=== PATIENT | female | born 1970 | race Caucasian/White ===

== ENCOUNTER → 2019-07-29 10:48 | Outpatient (CLI) | payer OTHER, SELFPAY ==
--- NOTE | ~2019-07-29 | XR_ITS ---
XR chest 2V 07/29/2019 10:56 Indication: Generalized lymph nodes. Procedure: 2 view chest Comparison: 01/08/2019 Findings: Heart size normal. Left basilar atelectasis. No focal pneumonia, edema, pleural effusion or pneumothorax. No acute osseous abnormality. Impression: 1: Left basilar atelectasis. Reviewed, dictated and finalized at location B. R ENTRY Impression: 1: Left basilar atelectasis.
== END ==
PROVIDERS: PCP Family Medicine; Visit Provider Nurse Practitioner Family
DX: R59.1 Generalized enlarged lymph nodes (principal); R91.8 Other nonspecific abnormal finding of lung field
CPT/HCPCS: 71046

== ENCOUNTER → 2019-08-27 13:44 | Outpatient (CLI) | payer OTHER, SELFPAY ==
--- NOTE | ~2019-08-27 | CT_ITS ---
EXAMINATION: CT chest abdomen pelvis w con DATE: 08/27/2019 14:26 INDICATION: Generalized enlarged lymph nodes. Fatigue. History of right fallopian tube removal. TECHNIQUE: Computed tomography (CT) of the chest, abdomen, and pelvis was performed with 100 cc Omnip aque 350 intravenous contrast. Automated exposure control and iterative reconstruction technique were employed. Exam dose: 1262.32 mGy-cm total exam DLP. COMPARISON: CT abdomen pelvis 07/29/2019 2 view chest x-ray FINDINGS: CHEST CT: No hilar or mediastinal mass lesion or lymphadenopathy. No suspicious axillary lymph nodes. No thoracic aortic aneurysm or dissection. Normal heart size. No pericardial or pleural effusion. There is mild atelectasis and/or scarring at the lung bases. ABDOMEN/PELVIS CT: There is diffuse hepatic steatosis. No hepatic, splenic, pancreatic, adrenal or renal space occupyin g mass lesion is detected. No bile duct or pancreatic duct dilatation. No urinary tract calculus or hydroureteronephrosis. Normal caliber of the abdominal aorta with minimal atherosclerotic calcification. No intraperitoneal or retroperitoneal or pelvic mass lesion or adenopathy or ascites. Calcified uterine fibroid. Uterus, adnexal areas and urinary bladder otherwise appear unremarkable. No bowel obstruction or intraperitoneal free air. Included skeletal structures are unremarkable. IMPRESSION: Mild atelectasis or scarring at the lung bases Hepatic steatosis Reviewed, dictated and finalized at Location A. Reviewed, dictated and finalized at location B.
[2019-08-27 14:16] LABS: Estimated Glomerular Filt Rate > 60
== END ==
PROVIDERS: PCP Family Medicine; Visit Provider Internal Medicine Infectious Disease
DX: R59.1 Generalized enlarged lymph nodes (principal); K76.0 Fatty (change of) liver, not elsewhere classified; R91.8 Other nonspecific abnormal finding of lung field
CPT/HCPCS: 36415; 71260; 74177; Q9967

== ENCOUNTER 2019-10-28 10:01 | Outpatient (CLI) | payer OTHER, SELFPAY ==
--- NOTE | ~2019-10-28 | CT_ITS ---
EXAMINATION: CT soft tissue neck wo con DATE: 10/28/2019 10:26 INDICATION: Cervical lymphadenopathy. TECHNIQUE: Computed tomography (CT) of the neck was performed without intravenous contrast. Automated exposure control and iterative reconstruction technique were employed. The dose-length product was 5 06.41 mGy-cm. COMPARISON: Chest CT 08/27/2019 FINDINGS: There is mild bilateral submandibular lymphadenopathy. For example, a left submandibular no de measures 10 x 15 mm. There is mild mucosal thickening in the maxillary sinuses. The mastoid air ce lls are normal. There is mild cervical spondylosis. IMPRESSION: 1. Mild bilateral submandibular lymphadenopathy, likely reactive. Reviewed, dictated and finalized at location A.
== END 2019-10-28 10:02 | disposition home or self-care (01) ==
LOC: ANHIMG 10:06
PROVIDERS: PCP Family Medicine; Visit Provider Internal Medicine Infectious Disease
DX: R59.1 Generalized enlarged lymph nodes (principal)
CPT/HCPCS: 70490

== ENCOUNTER → 2020-02-12 14:36 | Outpatient (CLI) | payer OTHER, SELFPAY ==
--- NOTE | ~2020-02-12 | XR_ITS ---
EXAMINATION: XR mandible min 4V DATE: 02/12/2020 15:10 INDICATION: Jaw pain. TECHNIQUE: 4 views of the mandible were obtained. COMPARISON: Neck CT 10/28/2019 FINDINGS: Bone alignment is normal. No fracture. IMPRESSION: 1. No fracture. Reviewed, dictated and finalized at location A. IMPRESSION: 1. No fracture.
== END ==
PROVIDERS: PCP Nurse Practitioner Family; Visit Provider Nurse Practitioner Family
DX: R22.0 Localized swelling, mass and lump, head (principal); R68.84 Jaw pain
CPT/HCPCS: 70110

== ENCOUNTER → 2020-02-23 10:30 | Outpatient (CLI) | payer OTHER, SELFPAY ==
--- NOTE | ~2020-02-23 | CT_ITS ---
EXAMINATION: CT soft tissue neck wo con EXAM DATE: 02/23/2020 10:43 INDICATION: Cervical lymphadenopathy. Recent biopsy. TECHNIQUE: Spiral CT of the neck was performed without contrast. Axial, coronal and sagittal images were reviewed. The dose-length product (DLP) for this examination was 357.08 mGy-cm. The exposure was tailored according to patient size (auto mA exposure control), and iterative reconstruction (ASIR ) was used as additional dose reduction technique. Comparison is made to prior examination from 020. FINDINGS: The thyroid gland is unremarkable. The submandibular and parotid glands are symmetric. There are bilateral submandibular lymph nodes which are upper limits of normal in size, one of the la rger on the left side measuring 1.4 x 0.8 cm. There are slightly decreased in size overall compared t o previous examination and are likely reactive. The superior mediastinum is unremarkable. The airw ay is unremarkable. Parapharyngeal and pre-glottic fat planes are preserved. Limited evaluation o f cervical vessels on this noncontrast study. The orbits are unremarkable. Visualized sinuses and mastoid air cells are well aerated. Lung apices are clear. There is cervical spondylosis. IMPRESSION: Submandibular lymph nodes with mild decrease in size, likely reactive. Reviewed, dictated and finalized at location A. IMPRESSION: Submandibular lymph nodes with mild decrease in size, likely reacti ve.
== END ==
PROVIDERS: PCP Family Medicine; Visit Provider Internal Medicine Infectious Disease
DX: R59.0 Localized enlarged lymph nodes (principal)
CPT/HCPCS: 70490

== ENCOUNTER → 2020-03-30 08:16 | Outpatient (CLI) | payer OTHER, SELFPAY ==
--- NOTE | ~2020-03-30 | MMUS_ITS ---
EXAMINATION: MM diagnostic patt BI w georgina, US breast BI complete HISTORY: Comparison to multiple prior studies sequentially, with oldest reviewed study dated 07/14/19 16. TECHNIQUE: Additional 3-D tomosynthesis images of the breasts were performed and synthetic 2-D images were generated. CAD analysis was submitted and interpreted. High resolution bilateral complete breas t ultrasound was performed. COMPARISON: Comparison to multiple prior studies sequentially, with oldest reviewed study dated 07/14. BREAST PARENCHYMAL COMPOSITION: Breast composed of scattered areas of fibroglandular density. FINDINGS: MAMMOGRAPHIC FINDINGS: There are no suspicious masses, calcifications or architectural distortion to suggest malignancy. ULTRASOUND: Bilateral complete ultrasound: Normal heterogeneous echotexture without focal solid or cystic mass. IMPRESSION: 1. No evidence for malignancy in either breast. 2. Routine yearly screening mammogram and regular clinical breast examination are recommended. BI-RADS Category 1: Negative Reviewed, dictated and finalized at location A. 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 No evidence for malignancy in either breast. 2. Routine yearly screening mammogram and regular clinical breast examination a re recommended. BI-RADS Category 1: Negative
== END ==
PROVIDERS: PCP Family Medicine; Visit Provider Obstetrics & Gynecology Gynecology
DX: R92.8 Other abnormal and inconclusive findings on diagnostic imaging of breast (principal)
CPT/HCPCS: 76641; 77062; 77066; G0279

== ENCOUNTER 2020-07-16 17:03 | Emergency (ER) | payer OTHER, SELFPAY ==
--- NOTE | 2020-07-16 17:12 | ED.CHESTPAIN ---
HPI - Chest Pain General Chief Complaint: Chest Pain Stated Complaint: chest tightness/left arm pain Time Seen by Provider: 07/16/20 17:16 Source: patient and RN notes reviewed Mode of arrival: ambulatory Limitations: no limitations History of Present Illness HPI narrative: 50-year-old female with history of hypothyroidism, hypertension, hyperlipidemia presents with concern for chest tightness, left arm pain, shortness of breath, fatigue. Reports fatigue and general malaise have been present for 2 to 3 days, chest tightness and left arm pain started today. She denies nausea, vomiting, diaphoresis, headache, fever. She denies injury or trauma. She denies increased chest pain with exertion. She denies history of cardiac events. MD complaint: chest pain Related Data Home Medications Medication Instructions Recorded Confirmed Prilosec 20 mg DAILY 04/14/19 03/14/20 Allergies Allergy/AdvReac Type Severity Reaction Status Date / Time No Known Allergies Verified 03/02/20 15:33 Review of Systems Review of Systems: Narrative: CONSTITUTIONAL: Denies malaise, chills, sweats, or fever. EYES: Denies visual changes, redness, or discharge. ENT: Reports chronic rhinorrhea, congestion. Denies sinus pain, otalgia or sore throat. CARDIOVASCULAR: Reports chest heaviness. Denies palpitations, or edema. RESPIRATORY: Denies cough. Reports dyspnea. GASTROINTESTINAL: Denies abdominal pain, nausea, vomiting, diarrhea, bloody, or mucous stools. GENITOURINARY: Denies dysuria or hematuria. SKIN: Denies rash or itching. MUSCULOSKELETAL: Denies back pain, joint pain, or myalgia. Reports left arm pain NEUROLOGIC: Denies numbness, weakness, or headache. All systems reviewed & are unremarkable except as noted in HPI and below PMFSH Family History Family History Father Hypertension Family history of diabetes mellitus in first degree relative Mother Hypertension Family history of diabetes mellitus in first degree relative Sibling Hypertension Grandparent Family history of malignant neoplasm of breast, Onset Age: 5 Social History Social History Smoking status: Never smoker Alcohol intake: current Gender identity (if verbalized by the patient): Female Comments At time of signature, agree with nursing past medical, surgical, social and family history. There is no relevant family history pertinent to the presenting complaint Exam Narrative: Exam Narrative: GENERAL: Well-appearing, well-nourished, and in no acute distress. HEAD: Normocephalic, atraumatic. EYES: PERRLA, conjunctivae clear, and EOMI. No nystagmus. ENT: Nares clear, turbinates pink, clear rhinorrhea. NECK: Supple. No lymphadenopathy. No jugular venous distension, thyromegaly, or carotid bruits. Carotids were easily palpable bilaterally. CHEST: No respiratory distress. Clear to auscultation. No bony deformities, no asymmetry. Speaks in full sentences. HEART: Regular rate and rhythm. No murmur heard. Normal peripheral pulses. ABDOMEN: Soft, nontender, nondistended, normal active bowel sounds, no palpable masses. SKIN: Warm, dry, no rash. NEURO: Alert and oriented x3. No focal deficits. PSYCH: Normal mood and affect Course Course Emergency Course: Discussed with patient limited diagnostic capability at the [facility] for diagnosing chest pain. Discussed normal EKG. Discussed transfer to emergency room for further evaluation of her chest pain. Patient discussed this with her and chooses to be discharged home, patient reports she understands risks. Patient is aware of, understands and agrees to treatment plan. Anticipatory guidance given. Patient agrees to follow-up as directed and is aware of reasons to seek care at the emergency department. Portions of this record may have been created with voice recognition software Vital Signs Vital signs: Vital Sign
[2020-07-16 17:17] VITALS: BP 167/86; PULSE 86; RESP 20; TEMP 36.6; O2SAT 100
--- NOTE | 2020-07-16 17:19 | ECG_ITS ---
Measurements Intervals [place] Rate: 78 P: 38 RI: 124 QRS: 36 QRSD: 94 T: 50 QT: 377 QTc: 432 Interpretive Statements SINUS RHYTHM INCOMPLETE RIGHT BUNDLE BRANCH BLOCK BASELINE ARTIFACT- I, II, III, AVR, AVL, AVF BORDERLINE ECG Electronically Signed On 07-17-2020 7:50:23 INTEGRATION ENGINEER by Kushal Corona D.O.
== END 2020-07-16 17:40 | disposition home or self-care (01) ==
PROVIDERS: Emergency Provider Nurse Practitioner; PCP Family Medicine
DX: R07.89 Other chest pain (principal); Z20.822 Contact with and (suspected) exposure to COVID-19; I10 Essential (primary) hypertension; K21.9 Gastro-esophageal reflux disease without esophagitis; E03.9 Hypothyroidism, unspecified; F41.9 Anxiety disorder, unspecified; F32.9 Major depressive disorder, single episode, unspecified
CPT/HCPCS: 87426; 93005; 99213; C9803; G0463

== ENCOUNTER 2020-08-13 08:37 | Outpatient (CLI) | payer OTHER, SELFPAY ==
--- NOTE | 2020-08-13 09:15 | ECHO_ITS ---
Patient Info Name: Ruma Ballesteros Age: 50 years : 1970 Gender: Female Ht: 62 in Wt: 175 lbs BSA: 1.90 m2 HR: 74 bpm BP: 131 / 89 mmHg Technical Quality: Good Exam Date: 08/13/2020 9:24 AM Exam Location: [facility] Patient Status: Outpatient Admit Date: 08/13/2020 Staff Ordering Physician: Alicia Aleman NP Billet Sawyer: Sejal Burkett RCS Attending Provider: Alicia Aleman NP Referring Physician: Love LAN; Exam Type: CA echo doppler color flow Study Info Indications - chest pain laughlin Complete two-dimensional, color flow and Doppler transthoracic echocardiogram is performed. Summary 1. Complete two-dimensional, color flow and Doppler transthoracic echocardiogram is performed. 2. Left ventricular chamber dimension is normal. 3. Left ventricular systolic function is normal, estimated at 55-60%. 4. The left ventricular diastolic function is grade I diastolic dysfunction. 5. E/e' 10 is mildly elevated. 6. Global longitudinal strain is mildly abnormal at -16.3%. 7. There is trace tricuspid valve regurgitation. 8. No pulmonary hypertension, estimated pulmonary arterial systolic pressure is 26 mmHg. Left Ventricle E/e' 10 is mildly elevated. Global longitudinal strain is mildly abnormal at -16.3%. Left ventricular chamber dimension is normal. Left ventricular systolic function is normal, estimated at 55-60%. The left ventricular diastolic function is grade I diastolic dysfunction. Right Ventricle Right ventricular chamber dimension is normal. Right ventricular systolic function is normal. Left Atria Left atrial chamber dimension is normal. Right Atria Right atrial chamber dimension is normal. Aortic Valve The aortic valve is trileaflet. There is no aortic valve stenosis. There is no aortic valve regurgitation. Pulmonic Valve There is no pulmonic regurgitation. Mitral Valve There is no mitral valve stenosis. There is no mitral valve regurgitation. Tricuspid Valve There is trace tricuspid valve regurgitation. No pulmonary hypertension, estimated pulmonary arterial systolic pressure is 26 mmHg. Pericardium/Pleural There is no pericardial effusion. Inferior Vena Cava Normal inferior vena cava with >50% collapse upon inspiration consistent with normal right atrial pressure, 5 mmHg. Aorta The aortic root size at the sinus of Valsalva is normal. Left Ventricular Outflow Tract Name Value Normal LVOT 2D LVOT Diameter 2.0 cm LVOT Doppler LVOT Peak Gradient 4 mmHg LVOT Mean Gradient 2 mmHg LVOT VTI 22 cm LVOT VTI/AV VTI Ratio 0.8 LVOT Stroke Volume 70 ml LVOT CO 13.9 l/min LVOT CI 7.3 l/min/m2 Pulmonic Valve Name Value Normal PV Doppler --
--- NOTE | 2020-08-13 09:16 | EST_ITS ---
Patient Info Name: Ruma Ballesteros Age: 50 years : 1970 Gender: Female Ht: 62 in Wt: 175 lbs BSA: 1.90 m2 Exam Date: 08/13/2020 10:13 AM Exam Location: [facility] Stress Patient Status: Outpatient Admit Date: 08/13/2020 Staff Ordering Physician: Alicia Aleman NP Attending Provider: Alicia Aleman NP Exercise Technologist: Shayna Obrien RDCS Exercise Physician: Kushal Corona DO Exam Type: CA stress test treadmill Study Info Indications R07.89 - Other chest pain A treadmill exercise stress test was performed. Summary 1. 1. Negative Yimi exercise stress test for ischemic ST changes by ECG criteria. She achieved 82% MPHR for age group, probably limited by taking Metoprolol last evening. 2. 2. Good functional capacity, achieving 9 METs of workload. 3. 3. Appropriate HR recovery at 1 minute post exercise. 4. 4. Hypertensive response to exercise. 5. 5. No imaging with stress testing. 6. 6. Patient informed of the above results. Protocol: Yimi Stress ECG Details Stage: REST Duration (min): 6 min : 23 sec Speed (mph): 0.0 Grade (%): 0 HR (bpm): 72 SBP (mmHg): 109 DBP (mmHg): 78 METS: --- Stage: REST Duration (min): 6 min : 45 sec Speed (mph): 0.0 Grade (%): 0 HR (bpm): 75 SBP (mmHg): 109 DBP (mmHg): 78 METS: --- Stage: REST Duration (min): 15 min : 1 sec Speed (mph): 0.0 Grade (%): 0 HR (bpm): 81 SBP (mmHg): 109 DBP (mmHg): 78 METS: --- Stage: STAGE 1 Duration (min): 1 min : 0 sec Speed (mph): 1.7 Grade (%): 10 HR (bpm): 97 SBP (mmHg): 109 DBP (mmHg): 78 METS: --- Stage: STAGE 1 Duration (min): 2 min : 0 sec Speed (mph): 1.7 Grade (%): 10 HR (bpm): 111 SBP (mmHg): 109 DBP (mmHg): 78 METS: --- Stage: STAGE 1 Duration (min): 3 min : 0 sec Speed (mph): 1.7 Grade (%): 10 HR (bpm): 112 SBP (mmHg): 157 DBP (mmHg): 78 METS: --- Stage: STAGE 2 Duration (min): 1 min : 0 sec Speed (mph): 2.5 Grade (%): 12 HR (bpm): 121 SBP (mmHg): 157 DBP (mmHg): 78 METS: --- Stage: STAGE 2 Duration (min): 2 min : 0 sec Speed (mph): 2.5 Grade (%): 12 HR (bpm): 130 SBP (mmHg): 214 DBP (mmHg): 117 METS: --- Stage: STAGE 2 Duration (min): 3 min : 0 sec Speed (mph): 2.5 Grade (%): 12 HR (bpm): 133 SBP (mmHg): 198 DBP (mmHg): 109 METS: --- Stage: STAGE 3 Duration (min): 1 min : 0 sec Speed (mph): 3.4 Grade (%): 14 HR (bpm): 139 SBP (mmHg): 184 DBP (mmHg): 92 METS: --- Stage: STAGE 3 Duration (min): 1 min : 31 sec Speed (mph): 3.4 Grade (%): 14 HR (bpm): 139 SBP (mmHg): 184 DBP (mmHg): 92 METS: --- Stage: RECOVERY Duration (min): 0 min : 28 sec Speed (mph): 0.0 Grade (%): 0 HR (bpm): 133 SBP (mmHg): 184 DBP (mmHg): 92 METS: ---
== END 2020-08-13 08:38 | disposition home or self-care (01) ==
PROVIDERS: PCP Family Medicine; Visit Provider Nurse Practitioner Family
DX: E78.5 Hyperlipidemia, unspecified (principal); I10 Essential (primary) hypertension; R06.00 Dyspnea, unspecified; R07.89 Other chest pain
CPT/HCPCS: 93017; 93306

== ENCOUNTER 2020-10-11 08:05 | Outpatient (CLI) | payer OTHER, SELFPAY ==
--- NOTE | 2020-10-16 12:40 | WPDPFTINT ---
PFT Procedure Performed PFT Procedure Performed Spirometry with Pre/Post Bronchodilator Plethysmography (Lung Vol) Diffusing Cap (DLCO) Flow Vol Loop PFT Interpretation This PFT met all criteria for ATS standards and reproducibility FEV/FVC post bronchodilator 71% FEV1 62% FVC 71% there was significant improvement in post bronchodilator FEV1 by 18% and 240 mL. TLC 81% RV 96% RV/TLC 42% DLCO 74% when adjusted for alveolar volume but not adjusted for hemoglobin Flow volume loops showed some expiratory coving. Impression: Moderate airflow obstruction with good response to bronchodilators. This pattern may be suggestive of asthma or COPD or combination thereof but other clinical entities and lung diseases cannot be ruled out. Clinical correlation is advised.
== END 2020-10-11 08:06 | disposition home or self-care (01) ==
LOC: ANHPFT 08:11
PROVIDERS: PCP Family Medicine; Visit Provider Nurse Practitioner Family
DX: J98.11 Atelectasis (principal); R06.00 Dyspnea, unspecified; R07.89 Other chest pain
CPT/HCPCS: 94060; 94726; 94729

== ENCOUNTER → 2021-02-07 15:30 | Outpatient (CLI) | payer OTHER, SELFPAY ==
--- NOTE | ~2021-02-07 | MR_ITS ---
EXAMINATION: MR knee LT wo con DATE: 02/07/2021 16:08 INDICATION: Left knee pain TECHNIQUE: Magnetic resonance imaging (MRI) of the left knee was performed without intravenous contra st. Sequences included coronal PD-weighted FSE, coronal PD-weighted FS FSE, sagittal T2-weighted FSE , sagittal PD-weighted FS FSE and axial PD weighted fat saturated FSE. COMPARISON: None. FINDINGS: Medial compartment: Medial meniscus is normal. Shallow chondral ulceration and deep fissuring with mild underlying cortic al irregularity and small region of subarticular edema at the posterior weightbearing medial femoral condyle. Cartilage along the remainder of the weightbearing medial femoral condyle and the medial tib ial plateau are relatively preserved. Lateral compartment: Lateral meniscus is normal. Articular cartilage is normal. Patellofemoral compartment: Small focus of chondral irregularity along the inferolateral aspect of the medial trochlea without de generative subchondral changes. Remainder of the patellofemoral cartilage is normal. Ligaments and tendons: The anterior and posterior cruciate ligaments are normal. Mild thickening of the proximal medial wayne ateral ligament without surrounding edema consistent with mild scarring related to chronic sprain. Th e fibular collateral ligament complex is normal. The extensor mechanism is normal. The visualized me dial and lateral hamstring tendons as well as the iliotibial band are normal. Fluid: Physiologic amount of fluid in the joint space. No loose osteochondral bodies identified. Osseous/other: Normal marrow signal. No fracture or pathologic marrow replacing process. IMPRESSION: 1. Mild medial and patellofemoral compartment osteoarthritis with high-grade chondromalacia along the posterior weightbearing medial femoral condyle and small focus of moderate grade chondromalacia at t he inferior aspect of the medial trochlea. 2. Mild scarring consistent with chronic sprain of the proximal medial collateral ligament. Reviewed, dictated and finalized at location A. IMPRESSION: 1. Mild medial and patellofemoral compartment osteoarthritis with high-grade ch ondromalacia along the posterior weightbearing medial femoral condyle and small focus of moderate grade chondromalacia at the inferior aspect of the medial tr ochlea. 2. Mild scarring consistent with chronic sprain of the proximal medial collater al ligament.
== END ==
PROVIDERS: PCP Family Medicine; Visit Provider Orthopaedic Surgery
DX: M17.12 Unilateral primary osteoarthritis, left knee (principal); M94.29 Chondromalacia, multiple sites
CPT/HCPCS: 73721

== ENCOUNTER → 2021-03-29 12:22 | Outpatient (CLI) | payer OTHER, SELFPAY ==
--- NOTE | ~2021-03-29 | MM_ITS ---
EXAMINATION: MM screening patt BI w georgina HISTORY: Screening TECHNIQUE: Craniocaudal and mediolateral oblique 3-D tomosynthesis images were obtained and synthetic 2-D images were generated. CAD analysis was submitted and interpreted. COMPARISON: Comparison to multiple prior studies sequentially, with oldest reviewed study dated 07/17. BREAST PARENCHYMAL COMPOSITION: The breasts are heterogenously dense, which may obscure small masses. FINDINGS: There is no evidence of suspicious mass, calcification, or architectural distortion to sugg est malignancy in either breast. There has been no suspicious interval change. IMPRESSION: 1. No mammographic evidence of malignancy. 2. Recommend routine screening mammography in one year. BI-RADS Category 1: Negative Reviewed, dictated and finalized at location A.
== END ==
PROVIDERS: PCP Family Medicine; Visit Provider Nurse Practitioner
DX: Z12.31 Encounter for screening mammogram for malignant neoplasm of breast (principal)
CPT/HCPCS: 77063; 77067

== ENCOUNTER → 2021-05-16 16:04 | Outpatient (CLI) | payer OTHER, SELFPAY ==
--- NOTE | ~2021-05-16 | DEXA_ITS ---
Bone Density Report Name: BRIA ARDON Age: 51 Sex: Female Ethnicity: White Date of : 1970 Indication: postmenopausal; screening for osteoporosis; Referring Provider: Caty, Patsy Study: Bone densitometry was performed. Exam Date: May 16, 2021 Accession number: [id number] Bone Density: Region BMD T-score Z-score Classification AP Spine (L1-L4) 1.088 0.4 1.2 Normal Femoral Neck (Left) 0.781 -0.6 0.3 Normal Total Hip (Left) 0.984 0.3 0.9 Normal Femoral Neck (Right) 0.663 -1.7 -0.8 Osteopenia Total Hip (Right) 0.871 -0.6 0.0 Normal Total Hip Mean 0.928 -0.2 0.5 Normal World Health Organization criteria for BMD impression classify patients as: Normal (T-score at or above -1.0), Osteopenia (T-score between -1.0 and -2.5), or Osteoporosis (T-score at or below -2.5). 10-year Fracture Risk(1): Major Osteoporotic Fracture 5.3% Hip Fracture 0.4% Reported Risk Factors: [place] (), Neck BMD=0.663, BMI=33.8 (1) FRAX(R) Version 3.08. Fracture probability calculated for an untreated patient. Fracture probability may be lower if the patient has received treatment. Clinical Information Provided by Patient: Patient maximum height was 62.5 Menopause Age: 40 No regular weight bearing exercise Onset of menses at age 11 Number of children 0 Impression: The patient has low bone mass, based on the Right Femoral Neck T-score. The patient has an estimated ten-year risk of hip fracture of 0.4% and an estimated ten-year risk of major fracture of 5.3%, based on the WHO FRAX algorithm. Discussion: BONE DENSITY IS LOW AT ONE OR MORE SKELETAL SITES. This patient's lowest T-score is low at one or more skeletal sites. It meets the World Health Organization's (WHO) criteria for ?low bone mass? (T-score between -1.0 and -2.5). The patient's 10-year risk of fracture as calculated by FRAX is less than the threshold where pharmacological therapy is recommended by the National Osteoporosis Foundation (NOF). However, all treatment decisions require clinical judgment and consideration of individual patient factors, including patient preferences, comorbidities, previous drug use, risk factors not captured in the FRAX model (e.g., frailty, falls, vitamin D deficiency, increased bone turnover, interval significant decline in bone density) and possible under or overestimation of fracture risk by FRAX. The patient should follow a healthful lifestyle (good nutrition with adequate calcium and vitamin D, and appropriate weight-bearing exercise). Follow-Up: Consider repeating this study in 2 to 3 years to reassess this patient's status, or sooner if there is some new clinical indication. Reported by: [facility] on 05/16/2021 4:19:00 PM. Reviewed, dictated
== END ==
PROVIDERS: Visit Provider Nurse Practitioner
DX: Z13.820 Encounter for screening for osteoporosis (principal); M85.851 Other specified disorders of bone density and structure, right thigh
CPT/HCPCS: 77080

== ENCOUNTER → 2022-05-31 15:33 | Outpatient (CLI) | payer OTHER, SELFPAY ==
--- NOTE | ~2022-05-31 | MM_ITS ---
EXAMINATION: MM screening [facility] BI w georgina HISTORY: Screening mammogram TECHNIQUE: Craniocaudal and mediolateral oblique 3-D tomosynthesis images were obtained and synthetic 2-D images were generated. CAD analysis was submitted and interpreted. COMPARISON: 03/29/2021, 03/30/2020, 06/17/2019, 01/14/2019, 07/22/2018 BREAST PARENCHYMAL COMPOSITION: There are scattered areas of fibroglandular density. FINDINGS: No suspicious mass, calcification, or architectural distortion are identified in either soumya ast to suggest malignancy. There has been no suspicious interval change. IMPRESSION: 1. No mammographic evidence of malignancy. 2. Recommend routine screening mammography in one year. BI-RADS Category 1: Negative Reviewed, dictated and finalized at location A. 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
== END ==
PROVIDERS: PCP Family Medicine; Visit Provider Nurse Practitioner
DX: Z12.31 Encounter for screening mammogram for malignant neoplasm of breast (principal)
CPT/HCPCS: 77063; 77067

== ENCOUNTER → 2023-06-12 11:54 | Outpatient (CLI) | payer OTHER, SELFPAY ==
--- NOTE | ~2023-06-12 | MMUS_ITS ---
EXAMINATION: MM diagnostic patt BI w georgina, US breast LT limited HISTORY: Palpable left breast abnormality TECHNIQUE: Additional 3-D tomosynthesis images of the breasts were performed and synthetic 2-D images were generated. CAD analysis was submitted and interpreted. High resolution Limited left breast ultr asound was performed. COMPARISON: Comparison to multiple prior studies sequentially, with oldest reviewed study dated 07/22. BREAST PARENCHYMAL COMPOSITION: Breast composed of scattered areas of fibroglandular density FINDINGS: MAMMOGRAPHIC FINDINGS: There are no suspicious masses, calcifications or architectural distortion in either breast to sugges t malignancy. ULTRASOUND: Limited left breast ultrasound: Normal heterogeneous echotexture without focal solid or cystic mass. IMPRESSION: 1. No evidence for malignancy in either breast. 2. Routine yearly screening mammogram and regular clinical breast examination are recommended. BI-RADS Category 1: Negative Reviewed, dictated and finalized at location A. ITORY BUSINESS MANAGER IMPRESSION: 1. No evidence for malignancy in either breast. 2. Routine yearly screening mammogram and regular clinical breast examination a re recommended. BI-RADS Category 1: Negative
== END ==
PROVIDERS: PCP Nurse Practitioner; Visit Provider Nurse Practitioner
DX: N63.20 Unspecified lump in the left breast, unspecified quadrant (principal)
CPT/HCPCS: 76642; 77062; 77066; G0279

== ENCOUNTER 2023-08-15 14:08 | Outpatient (CLI) | payer OTHER, SELFPAY ==
--- NOTE | ~2023-08-15 | XR_ITS ---
Lumbosacral Spine: AP and lateral views Clinical History: Pain Findings: The normal lordotic curve is maintained. The vertebral bodies and posterior elements are i ntact. The intervertebral disc spaces are preserved. Mild facet joint degenerative changes are prese nt. The sacroiliac joints are normally outlined. Impression: Mild facet joint arthropathy. Reviewed, dictated and finalized at location . Impression: Mild facet joint arthropathy.
--- NOTE | ~2023-08-15 | XR_ITS ---
Supine and upright views of the abdomen Clinical history: Abdominal pain Findings: Bowel gas pattern is nonspecific. No evidence for obstruction or free air. No abnormal mass lesion or calcification is seen. Osseous structures are intact. Impression: No significant abnormality is seen. Reviewed, dictated and finalized at [facility]. Impression: No significant abnormality is seen.
== END 2023-08-15 14:09 ==
LOC: MICIMG 14:08
PROVIDERS: PCP Family Medicine; Visit Provider Nurse Practitioner Adult Health
DX: R10.32 Left lower quadrant pain (principal); M54.50 Low back pain, unspecified
CPT/HCPCS: 72100; 74018

== ENCOUNTER 2024-08-20 15:00 | Outpatient (CLI) | payer OTHER, SELFPAY ==
--- NOTE | ~2024-08-20 | MM_ITS ---
EXAMINATION: MM screening patt BI w georgina HISTORY: Screening TECHNIQUE: Craniocaudal and mediolateral oblique 3-D tomosynthesis images were obtained and synthetic 2-D images were generated. CAD analysis was submitted and interpreted. COMPARISON: 06/12/2023 and dating back to 03/30/2020 BREAST PARENCHYMAL COMPOSITION: There are scattered areas of fibroglandular density. FINDINGS: Punctate calcifications are detected diffusely within the bilateral breast tissue, stable a nd benign in appearance. Stable parenchymal pattern without suspicious microcalcifications, discrete masses or significant asy mmetry. IMPRESSION: 1. No mammographic evidence of malignancy. 2. Recommend routine screening mammography in one year. BI-RADS Category 2: Benign finding(s). Reviewed, dictated and finalized at location A.
== END 2024-08-20 15:01 | disposition home or self-care (01) ==
LOC: MICIMG 15:02
PROVIDERS: PCP Family Medicine; Visit Provider Nurse Practitioner
DX: Z12.31 Encounter for screening mammogram for malignant neoplasm of breast (principal)
CPT/HCPCS: 77063; 77067

== ENCOUNTER 2024-09-04 09:34 | Outpatient (CLI) | payer OTHER, SELFPAY ==
--- NOTE | ~2024-09-04 | XR_ITS ---
EXAM/PROCEDURE: XR chest 2V - 09/04/2024 09:37 CDT HISTORY: 54 years old Female with J18.9 - Pneumonia, unspecified organism TECHNIQUE: Two view(s) of the chest. COMPARISON: 01/08/2019 FINDINGS: LUNGS/ PLEURA: Bibasilar linear opacities, left greater than right. These are nonspecific and may rep resent atelectasis, scarring versus pneumonia. Clinical correlation is recommended. No pneumothorax o r large pleural effusion. HEART/ MEDIASTINUM: Heart appears normal in size. BONES: No acute osseous abnormality. OTHER: Visualized upper abdomen is unremarkable. IMPRESSION: These are nonspecific and may represent atelectasis, scarring versus pneumonia. Clinical correlation is recommended. Reviewed, dictated and finalized at location A.
== END 2024-09-04 09:35 | disposition home or self-care (01) ==
LOC: MICIMG 09:36
PROVIDERS: PCP Family Medicine; Visit Provider Nurse Practitioner Family
DX: R10.12 Left upper quadrant pain (principal); J18.9 Pneumonia, unspecified organism; R91.8 Other nonspecific abnormal finding of lung field
CPT/HCPCS: 71046

== ENCOUNTER 2024-09-05 10:20 | Outpatient (CLI) | payer OTHER, SELFPAY ==
--- NOTE | ~2024-09-05 | US_ITS ---
Abdominal Sonogram: Real-time sonographic imaging of the abdomen was performed. Clinical History: Abdominal pain Findings: The liver appears echogenic, with no evidence of mass lesion or bile duct dilatation. Main portal vein demonstrates normal direction of flow. The spleen is normal in size without evidence of focal lesion. The gallbladder is well distended, and appears normal with no evidence of gallstone or wall thickening. The common bile duct measures 5 mm. The visualized pancreas, aorta, and IVC are un remarkable. The right kidney measures 11.2 cm in length and the left kidney measures 10.7 cm. There is no hydronephrosis or renal calculus. Impression: Diffuse fatty infiltration of liver. Reviewed, dictated and finalized at location M. Impression: Diffuse fatty infiltration of liver.
== END 2024-09-05 10:21 | disposition home or self-care (01) ==
LOC: MICIMG 10:20
PROVIDERS: PCP Family Medicine; Visit Provider Nurse Practitioner Family
DX: R10.12 Left upper quadrant pain (principal)
CPT/HCPCS: 76700

== ENCOUNTER 2024-09-12 14:20 | Outpatient (CLI) | payer OTHER, SELFPAY ==
--- NOTE | ~2024-09-12 | CT_ITS ---
Clinical Indication: Pneumonia CT Scan of the Chest with Contrast: Technique: Contiguous sections were acquired throughout the chest after intravenous administration of 75 cc of Omnipaque 350. Dose reduction technique was used on this scan by utilizing automated exposu re control and iterative reconstruction technique. The dose-length product (DLP) was 375.74 mGy-cm. Findings: There is no evidence of any significant mediastinal, hilar or axillary lymphadenopathy. There is no f illing defect in the pulmonary arterial tree to suggest pulmonary embolus. There is no evidence of ao rtic dissection or aneurysm. There is no evidence of pleural or pericardial effusion. 6 mm right middle lobe nodule present (axial image 60). 4 mm right lower lobe nodule present (axial i mage 61). There is minimal left basilar scarring or atelectasis. Images through the upper abdomen reveal probable diffuse fatty infiltration of the liver. Impression: 6 mm right middle lobe nodule and 4 mm right lower lobe nodule, as above. According to Fleischner Soc iety criteria, for a low-risk patient, recommend follow-up CT scan in 6-12 months, then consider shira tional 18-[address] For a high-risk patient, follow-up CT scans at both 6-12 months and 18-24 juan hs are recommended. Reviewed, dictated and finalized at location . Impression: 6 mm right middle lobe nodule and 4 mm right lower lobe nodule, as above. Accor ding to Fleischner Society criteria, for a low-risk patient, recommend follow-u p CT scan in 6-12 months, then consider additional 18-[address] For a high-r isk patient, follow-up CT scans at both 6-12 months and 18-24 months are recomm ended.
[2024-09-12 14:37] LABS: Estimated Glomerular Filt Rate 52
== END 2024-09-12 14:21 | disposition home or self-care (01) ==
LOC: MICIMG 14:22
PROVIDERS: PCP Family Medicine; Visit Provider Family Medicine
DX: J18.9 Pneumonia, unspecified organism (principal); R06.02 Shortness of breath; J98.11 Atelectasis; R91.1 Solitary pulmonary nodule
CPT/HCPCS: 71260; Q9967

== ENCOUNTER 2024-11-07 08:56 | Outpatient (CLI) | payer OTHER, SELFPAY ==
--- NOTE | ~2024-11-07 | DEXA_ITS ---
Bone Density Report Name: BRIA ARDON Age: 54 Sex: Female Ethnicity: White Date of : 1970 Indication: postmenopausal; screening for osteoporosis; asthma or emphysema; Referring Provider: Caty, Patsy Study: Bone densitometry was performed. Exam Date: November 07, 2024 Accession number: [id number] Bone Density: Region BMD T-score Z-score Classification AP Spine(L1-L4) 1.011 -0.3 0.8 Normal Femoral Neck (Left) 0.760 -0.8 0.3 Normal Total Hip (Left) 0.970 0.2 0.9 Normal Femoral Neck (Right) 0.627 -2.0 -0.9 Osteopenia Total Hip (Right) 0.843 -0.8 -0.1 Normal Total Hip Mean 0.907 -0.3 0.4 Normal World Health Organization criteria for BMD impression classify patients as: Normal (T-score at or above -1.0), Osteopenia (T-score between -1.0 and -2.5), or Osteoporosis (T-score at or below -2.5). 10-year Fracture Risk(1): Major Osteoporotic Fracture 7.3% Hip Fracture 0.8% Reported Risk Factors: [place] (), Neck BMD=0.627, BMI=33.2 (1) FRAX(R) Version 3.08. Fracture probability calculated for an untreated patient. Fracture probability may be lower if the patient has received treatment. Previous Exams: -- Region Exam Age BMD T-score BMD Change BMD Change Date g/cm2 vs Baseline vs Previous -- AP Spine (L1-L4) 11/07/2024 54 1.011 -0.3 -7.1%* -7.1%* 05/16/2021 51 1.088 0.4 Total Hip(Left) 11/07/2024 54 0.970 0.2 -1.4% -1.4% 05/16/2021 51 0.984 0.3 Total Hip(Right) 11/07/2024 54 0.843 -0.8 -3.2%* -3.2%* 05/16/2021 51 0.871 -0.6 -- *Denotes significance at 95% confidence level, LSC for AP Spine = 0.022 g/cm2, LSC for Total Hip = 0.027 g/cm2 Clinical Information Provided by Patient: Has used the following medications: Vitamin D Has the following medical conditions: Asthma or Emphysema Patient maximum height was 63 Menopause Age: 40 No regular weight bearing exercise Drinks caffeinated beverages Onset of menses at age 11 Number of children 0 Impression: The patient has low bone mass, based on the Right Femoral Neck T-score. The patient has an estimated ten-year risk of hip fracture of 0.8% and an estimated ten-year risk of major fracture of 7.3%, based on the WHO FRAX algorithm. The BMD for the AP Spine (L1-L4) decreased, changing by -7.1% since the last DXA exam. The BMD for the Total Hip(Right) decreased, changing by -3.2% since the last DXA exam. Discussion: BONE DENSITY IS LOW AT ONE OR MORE SKELETAL SITES. This patient's lowest T-score is low at one or more skeletal sites. It meets the World Health Organization's (WHO) criteria for ?low bone mass? (T-score between -1.0 and -2.5). The patient's 10-year risk of fracture as calculated by FRAX is less than the threshold where pharmacological therapy is recommended by the National Osteoporosis Foundation (NOF). However, all treatment decisions require clinical judgment and consideration of individual patient factors, including patient preferences, comorbidities, previous drug use, risk factors not captured in the FRAX model (e.g., frailty, falls, vitamin D deficiency, increased bone turnover, interval significant decline in bone density) and possible under or overestimation of fracture risk by FRAX. The patient should follow a healthful lifestyle (good nutrition with adequate calcium and vitamin D, and appropriate weight-bearing exercise). Follow-Up: Consider repeating this study in 2 years to reassess this patient's status, or sooner if there is some new clinical indication. Reported by: MINISTERIO on 11/07/2024 9:11:00 AM. Reviewed, dictated and finalized at location A.
== END 2024-11-07 08:57 | disposition home or self-care (01) ==
PROVIDERS: PCP Nurse Practitioner; Visit Provider Nurse Practitioner
DX: Z13.820 Encounter for screening for osteoporosis (principal); M85.851 Other specified disorders of bone density and structure, right thigh
CPT/HCPCS: 77080

== ENCOUNTER 2025-01-20 20:51 | Emergency (ER) | payer OTHER, SELFPAY ==
[2025-01-20 20:55] VITALS: BP 161/89; RESP 16; TEMP 36.5; O2SAT 98
--- OUTSIDE RECORDS SUMMARY | 2025-01-20 21:36 | XMS_ITS | Clinical Summary ---
Author Organization [facility] Address [address] [place] [address] Phone Care Team Providers Care Mushroom Cutter Name Role Phone Leonardo Sales MD Primary Care Provider Allergies No known active allergies Medications ramipril (ALTACE) 10 mg capsule Take 10 mg by mouth daily. Active metoprolol succinate (TOPROL XL) 25 mg Extended Release 24 hour tablet Take 25 mg by mouth daily. Active buPROPion HCl (WELLBUTRIN XL) 150 mg Extended Release 24 hour tablet Take 150 mg by mouth daily medical records technician. Active citalopram (CeleXA) 20 mg tablet Take 20 mg by mouth daily at bedtime. Active hydroCHLOROthiaz vaishnavi 25 mg tablet Take 25 mg by mouth daily. Active levothyroxine 100 mcg tablet Take 100 mcg by mouth daily medical records technician. Active omeprazole (PriLOSEC) 20 mg Capsule, Delayed Release(E.C.) Take 20 mg by mouth daily. Active Active Problems Problem Noted Date Diagnosed Date Gastritis 07/09/2017 History of colon polyps--06/28 07/15--adenoma--due next colonoscony 07/09/2022 07/09/2017 Diverticulosis of large intestine without hemorr son 07/09/2017 Elevated liver enzymes 10/24/2016 Hepatic steatosis 10/24/2016 Family History Medical History Relation Name Comments Other Brother Other Father Colon Cancer Neg Hx Relation Name Status Comments Brother spastic colon Father spastic colon Social History Tobacco Use Types Packs/Day Years Used Date Smoking Tobacco: Never Smokeless Tobacco: Never Alcohol Use Standard Drinks/Week Comments Yes 0 (1 standard drink = 0.6 oz pure alcohol) less than 1-2 alcoholic drinks per month Comments Unknown Sex and Gender Information Value Date Recorded Sex Assigned at Not on file Legal Sex Female 2:41 PM CDT Gender Identity Not on file Sexual Orientation Not on file Last Filed Vital Signs Vital Sign Reading Time Taken Comments Blood Pressure 111/71 11/07/2018 1:18 PM CDT Pulse 84 11/07/2018 1:18 PM CDT Temperature 36.3 C (97.3 F) 07/09/2017 11:19 AM 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 Respiratory Rate 13 07/09/2017 11:33 AM TORCH HEATER Oxygen Saturation 97% 07/09/2017 11:33 AM TORCH HEATER Inhaled Oxygen Concentration - - Weight 78.5 kg (173 lb) 11/07/2018 1:18 PM CDT Height 157.5 cm (5' 2) 11/07/2018 1:18 PM CDT Body Mass Index 31.64 11/07/2018 1:18 PM CDT Plan of Treatment Health Maintenance Due Date Last Done Comments DTAP/TDAP/TD VACCINES (1 - Tdap) 1988 HEPATITIS B VACCINES (1 of 3 - 19+ 3-dose series) 06/1987 HPV/Cotest (21-29) 1990 CERVICAL CANCER SCREENING 1999 HPV/Cotest (30-65) 1999 PAP SMEAR 1999 BREAST CANCER SCREENING 2009 FIT-DNA Q 3 years 2014 FIT/FOBT Q 1 year 2014 Flex Sig/CT Colonography Q 5 years 2014 ZOSTER VACCINE (1 of 2) 2019 COLORECTAL SCREENING 07/09/2022 07/09/2017 Colorectal Cancer Screening 07/09/2022 INFLUENZA VACCINE (#1) 2024 Insurance [facility] OPTIONS PPO [id number] Member Subscriber Plan / Payer (Ef fective 2020-Present) Name:Ruma Ballesteros Relation to Subscriber:Self Name:Ruma Ballesteros Payer ID:[id number] (NAIC) Type:O Address: [facility] [id number] [place] [id number] Advance Directives For more information, please contact: [phone] * Full Code (Latest Code Status on File) Date Activated Date Inactivated Comments 07/09/2017 10:00 AM 07/09/2017 1:51 PM Care Teams Mushroom Cutter Relationship Specialty Start Date End Date Leonardo Sales MD [address] [place] [address] PCP - General Family Practice 09/19/16
--- OUTSIDE RECORDS SUMMARY | 2025-01-20 21:36 | XMS_ITS | Clinical Summary ---
Author Organization [facility] Address [address] [place] [address] Care Team Providers Care Induction Machine Operator Name Role Phone Leonardo Sales MD Primary Care Provider [phone] Jodi Pratt MD Unavailable [phone] Allergies Active Allergy Reactions Criticality Noted Date Comments Amoxicillin Diarrhea Low 04/26/2020 Medications hydroCHLOROthi azide (HYDRODIURIL) 25 mg tablet 03/10/20 20 Active Synthroid 100 mcg tablet 03/09/20 20 Active predniSONE (DELTASONE) 10 mg tablet TK 1 T PO TID 03/02/20 20 Active ramipriL (ALTACE) 10 mg capsule 04/05/20 20 Active methylPREDNISo lone (MEDROL DOSEPACK) 4 mg Dosepack methylprednisolone 4 mg tablets in a dose pack Active benzonatate (TESSALON) 100 mg capsule benzonatate 100 mg capsule Active buPROPion XL (WELLBUTRIN XL) 150 mg 24 hr tablet Take 150 mg by mouth Active cefdinir (OMNICEF) 300 mg capsule cefdinir 300 mg capsule Active citalopram (CeleXA) 20 mg tablet 01/28/20 20 Active fluconazole (DIFLUCAN) 100 mg tablet TK 1 T PO QD FOR 7 DAYS 01/26/20 20 Active HYDROcodone-ac etaminophen (NORCO) 5-325 mg per tablet hydrocodone 5 mg-acetaminophen 325 mg tablet Active omeprazole (PriLOSEC) 20 mg capsule Take 20 mg by mouth daily Active oseltamivir (TAMIFLU) 75 mg capsule oseltamivir 75 mg capsule Active Active Problems Problem Noted Date Diagnosed Date Lymphadenopathy 05/03/2020 Social History Tobacco Use Types Packs/Day Years Used Date Smoking Tobacco: Never Personal Safety Answer Date Recorded Getting School Help Needed Not on file 06/21 Comments No Sex and Gender Information Value Date Recorded Sex Assigned at Not on file Legal Sex Female 6:00 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 Gender Identity Female 09/11/2023 12:37 PM CDT Sexual Orientation Straight 04/14/2020 10 :11 AM CYBER LEGAL ADVISOR Obstetrics History Last Filed Vital Signs Vital Sign Reading Time Taken Comments Blood Pressure - - Pulse - - Temperature - - Respiratory Rate - - Oxygen Saturation - - Inhaled Oxygen Concentration - - Weight 83.5 kg (184 lb) 04/26/2020 2:14 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 Height 157.5 cm (5' 2) 04/26/2020 2:14 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 Body Mass Index 33.65 04/26/2020 2:14 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 Plan of Treatment Not on file Insurance [facility] [address] CHOICE PLUS Care Teams Induction Machine Operator Relationship Specialty Start Date End Date Leonardo Sales MD PCP - General Family Medicine 03/31/20 Jodi Pratt MD [address] [id number] Referring Physician Gynecology 03/31/20
[2025-01-20] MEDS: KETOROLAC (*BKC) 60 MG/2 ML VIAL IM (21:58)
--- NOTE | 2025-01-20 22:37 | ED.GENADULT ---
HPI - General Adult General Chief complaint: Unspecified Stated complaint: R. cheek pain Time Seen by Provider: 01/20/25 21:06 History of Present Illness HPI narrative: Patient is a 54-year-old female presents to the ER with right jaw and right ear pain. She reports her pain started a couple of days ago but became ?excruciating earlier today. Patient reports she has a history of sinus infections. She reports last time she had a sinus infection her primary care provider put her on Keflex. Patient reports she did not take the full prescription, so she started taking it today. She denies any dental cavities, cracks in her teeth, dental pain, abscesses in her mouth, recent fevers, mastoid tenderness, or difficulty opening and shutting her jaw. Patient endorses a history of asthma and high blood pressure. Related Data Home Medications ?Medication ?Instructions ?Recorded ?Confirmed ?Last Taken ?Type cetirizine 10 mg capsule (Zyrtec) 10 mg PO DAILY PRN 09/01/20 10/28/24 Unknown History cholecalciferol (vitamin D3) 50 50 mcg PO DAILY 10/06/21 10/28/24 Unknown History mcg (2,000 unit) capsule omeprazole 20 mg capsule,delayed 20 mg PO DAILY 11/13/23 10/28/24 Unknown History release oxybutynin chloride 5 mg tablet 5 mg PO DAILY 10/28/24 10/28/24 Unknown History Allergies Allergy/AdvReac Type Severity Reaction Status Date / Time amoxicillin Allergy Mild upset Verified 01/20/25 20:57 stomach Review of Systems Review of Systems: All systems reviewed & are unremarkable except as noted in HPI and below PMFSH Past Medical History Medical History LUQ pain BMI 33.0-33.9,adult Low back pain LLQ pain BMI greater than 30 Sprain of left foot Adult BMI 34.0-34.9 kg/sq m Pes anserine bursitis Left knee pain BMI 32.0-32.9,adult Surgical History Surgical History History of elbow surgery 07/2012: R elbow repair Family History Family History Father Hypertension Family history of diabetes mellitus in first degree relative Mother Hypertension Family history of diabetes mellitus in first degree relative Sibling Hypertension Grandparent Family history of malignant neoplasm of breast, Onset Age: 5 Social History Social History Smoking status: Never smoker Alcohol intake: current Alcohol use details: occasionally Substance use: never Substance use type: does not use Do You Feel Safe in your Home?: Yes Lack of Transportation: No Lack of Food: Never True Current Housing: I Have Housing Concerned About Future Housing: No Difficulty Paying Gas/Electric Bills: No Difficulty Paying for Meds: No Currently Unemployed: No Education: High School Diploma/GED Difficulty w/ Childcare or Family Care: No Living arrangements: with family Occupation/Education: occupation 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 HEAD: Normocephalic, atraumatic. NECK: Supple. No masses. + cervical lymphadenopathy. No visible abscesses or open sores in mouth. Patient's throat is not edematous or red. RESPIRATORY: Airway patent, respirations nonlabored. Clear to auscultation bilaterally, no rales, rhonchi, wheezing. CARDIOVASCULAR: Regular rate and rhythm without murmurs, rubs, or gallops. Peripheral pulses 2+ and equal bilaterally. ABDOMINAL: Soft, nontender, nondistended, no hepatosplenomegaly. Normoactive BS. MUSCULOSKELETAL: Moves all extremities. Strength/ROM intact without gross deformities. SKIN: Warm, dry, normal color. No rashes. NEURO: A&O X3. Speech clear. Cranial nerves II-XII intact. No ataxic movements. PSYCHIATRIC: Appropriate mood and affect. Normal interaction. Course Vital Signs Vital signs: Vital Signs Temperature 36.5 C 01/20/25 20:55 Respiratory Rate 16 01/20/25 20:55 Blood Pressure 161/89 H 01/20/25 20:55 Pulse Oximetry 98 01/20/25 20:55 Oxygen Delivery Room Air 01/20/25 20:55 Temperature 36.5 C 01/20/25 20:55 Respiratory Rate 16 01/20/25 20:55 Blood Pressure 161/89 H 01/20/25 20:55 Pulse Oximetry 98 01/20/25 20:55 Oxygen Delivery Room Air 01/20/25 20:55 Medical Decision Making MDM Narrative Medical decision making narrative: Patient is a 54-year-old female presents to the ER with right jaw and right ear pain. She reports her pain started a couple of days ago but became ?excruciating earlier today. Patient reports she has a history of sinus infections. She reports last time she had a sinus infection her primary care provider put her on Keflex. Patient reports she did not take the full prescription, so she started taking it today. She denies any dental cavities, cracks in her teeth, dental pain, abscesses in her mouth, recent fevers, mastoid tenderness, or difficulty opening and shutting her jaw. Patient endorses a history of asthma and high blood pressure. Labs Ordered: None necessary Imaging Ordered: None necessary (patient offered a CT scan but she declined) Medications Ordered: Toradol 60 mg IM, prednisone 40 mg IM Diagnosis: Sinus infection, right-sided facial inflammation Patient Education/Shared MDM: Results of examination shared with patient. She endorses improvement of symptoms following medication administration. Patient strongly advised to maintain hydration status upon discharge and follow-up with her PCP as soon as possible. She will be discharged home with a prescription for steroids. Patient will also be discharged home with a prescription for Augmentin, which she should only start if the steroids do not help decrease her pain over the next 2 days. Strict return precautions provided. Patient verbalized understanding and is in agreement with plan. Vital signs stable at time of discharge. All questions answered. *Pt requesting additional pain medication before discharge. She will be given one dose of [place]. Differential Diagnosis Differential Diagnosis: Sinusitis, dental abscess, dental caries, dental pain, mastoiditis Vital Signs Vital Signs: Vital Signs Temperature 36.5 C 01/20/25 20:55 Respiratory Rate 16 01/20/25 20:55 Blood Pressure 161/89 H 01/20/25 20:55 Pulse Oximetry 98 01/20/25 20:55 Oxygen Delivery Room Air 01/20/25 20:55 Temperature 36.5 C 01/20/25 20:55 Respiratory Rate 16 01/20/25 20:55 Blood Pressure 161/89 H 01/20/25 20:55 Pulse Oximetry 98 01/20/25 20:55 Oxygen Delivery Room Air 01/20/25 20:55 Discharge Plan Discharge Clinical Impression: Acute sinus infection, Facial edema, Jaw pain Patient Disposition: Home Condition: Stable Instructions: Antibiotic Form, Sinusitis (ED) Additional Instructions: Please return to the ER with any worsening symptoms. Follow-up with primary care provider as soon as possible for further evaluation. Take all medications as prescribed, including regularly scheduled medications. If your symptoms do not improved with 2 days of steroids then please start the antibiotic. Complete your full dose of antibiotics. Do not save any of your antibiotics. If you start the antibiotics please take a probiotic at the same time to prevent an upset stomach. Patient Language: Georgian Prescriptions: New amoxicillin-pot clavulanate 875-125 mg tablet 1 tablet PO Q12H Qty: 20 0RF prednisone 20 mg tablet 20 mg PO BID Qty: 20 0RF fluticasone propionate [Flonase Allergy Relief] 50 mcg/actuation spray,suspension 1 spray intranasal BID Qty: 16 0RF Rx Instructions: administer into each nostril No Action cholecalciferol (vitamin D3) 50 mcg (2,000 unit) capsule 50 mcg PO DAILY omeprazole 20 mg capsule,delayed release(DR/EC) 20 mg PO DAILY rosuvastatin 20 mg tablet 20 mg PO DAILY Qty: 90 0RF Zyrtec 10 mg capsule 10 mg PO DAILY PRN oxybutynin chloride 5 mg tablet 5 mg PO DAILY albuterol sulfate 90 mcg/actuation HFA aerosol inhaler 1 - 2 puff inhalation Q4-6H PRN (Reason: shortness of breath or wheezing) Qty: 8.5 2RF ramipril 10 mg capsule See Rx Instructions .ROUTE .COMPLEX Qty: 90 3RF Dose Instruction: TAKE 1 CAPSULE DAILY Rx Instructions: TAKE 1 CAPSULE DAILY bupropion HCl 150 mg tablet sustained-release 12 hr See Rx Instructions .ROUTE .COMPLEX Qty: 90 3RF Dose Instruction: TAKE 1 TABLET DAILY Rx Instructions: TAKE 1 TABLET DAILY levothyroxine 75 mcg tablet See Rx Instructions .ROUTE .COMPLEX Qty: 90 3RF Dose Instruction: TAKE 1 TABLET DAILY Rx Instructions: TAKE 1 TABLET DAILY budesonide-formoterol [Symbicort] 160-4.5 mcg/actuation HFA aerosol inhaler 2 puff inhalation Q12H 90 Days Qty: 30.6 1RF Rx Instructions: Rinse mouth and spit after each use citalopram 20 mg tablet See Rx Instructions .ROUTE .COMPLEX Qty: 90 3RF Dose Instruction: TAKE 1 TABLET DAILY Rx Instructions: TAKE 1 TABLET DAILY metoprolol succinate 25 mg tablet extended release 24 hr See Rx Instructions .ROUTE .COMPLEX Qty: 90 3RF Dose Instruction: TAKE 1 TABLET DAILY Rx Instructions: TAKE 1 TABLET DAILY hydrochlorothiazide 25 mg tablet See Rx Instructions .ROUTE .COMPLEX Qty: 90 3RF Dose Instruction: TAKE 1 TABLET DAILY Rx Instructions: TAKE 1 TABLET DAILY Follow-up/Referrals: Leonardo Sales MD [Primary Care Provider, Family Practice] Time of Disposition: 22:50
[2025-01-20] MEDS: HYDROcodone/acetaminophen (*CRX) 5-325 MG TABLET 1 TAB PO (23:01)
[2025-01-20 23:04] VITALS: BP 113/94; O2SAT 100
== END 2025-01-20 23:05 | disposition home or self-care (01) ==
PROVIDERS: Emergency Provider Registered Nurse; PCP Family Medicine
DX: J01.90 Acute sinusitis, unspecified (principal); R68.84 Jaw pain; R60.9 Edema, unspecified
CPT/HCPCS: 96372; 99283; A9270; J1885; J7512